=== PATIENT | female | born 1995 | race Caucasian/White ===

== ENCOUNTER 2017-11-28 17:43 | Emergency (ER) | payer BC ==
[2017-11-28 19:47] LABS: ABS Basophils 0 10^3/ul (0-0.2); ABS Eosinophils 0 10^3/ul (0-0.6); ABS Lymphocytes 1.5 10^3/ul (1.0-4.8); ABS Monocytes 0.9 10^3/ul (0-0.8); ABS Neutrophils 9.5 10^3/ul (1.5-7.7); ABS Nucleated RBC 0 10^3/ul; Eosinophil % 0.1 % (0-6); Hematocrit 36 % (35-47); Hemoglobin 12.4 g/dl (12.0-16.0); Lymphocyte % 12.8 % (25-47); Mean Corpuscular HGB Conc 35 g/dl (31-36); Mean Corpuscular Hemoglobin 31 pg (27-31); Mean Corpuscular Volume 90 fL (80-97); Mean Platelet Volume 9 um3 (7.4-10.4); Nucleated Red Blood Cells % 0; Platelet Count 269 10^3/ul (150-450); Red Blood Count 3.98 10^6/ul (4.0-5.4); Red Cell Distribution Width 13 % (10.5-15); White Blood Count 11.9 10^3/ul (3.5-10.8)
[2017-11-28 20:07] LABS: EGFR Non-African American 77.8 (>60)
[2017-11-28 20:30] LABS: Urine Appearance Clear; Urine Blood Negative (Negative); Urine Color Yellow; Urine Ketones Negative (Negative); Urine Protein Negative (Negative); Urine Specific Gravity 1.025 (1.010-1.030); Urine Urobilinogen Negative (Negative)
[2017-11-28] MEDS ORDERED: NS 0.9% 1000 ML* 1,000 ML IV ONE (22:57)
[2017-11-28] MEDS ORDERED: Ketorolac INJ* 30 MG/ML 1 ML VIAL IV PUSH ONE (22:57)
[2017-11-29] MEDS ORDERED: Bisacodyl SUPP* 10 MG SUPP PR ONE (01:24)
[2017-11-29] MEDS ORDERED: Magnesium CITRATE* 300 ML BTL PO ONE (01:24)
--- NOTE | 2017-11-29 01:37 | ED ---
Patrick Be Angela, scribed for Linda Negron MD on 11/28/17 at 2253 . Abdominal Pain/Female - HPI Summary HPI Summary: This pt is a 22 y/o female presenting to [facility] [place] c/o lower abd pain across her abd. She notes her abd pain began last night and her pain persisted through this morning. Pt describes her pain as sharp and radiating to her back. Pt additionally reports fever, nausea, and vomiting. Her last bowel movement was yesterday. LMP: beginning of November. - History of Current Complaint Chief Complaint: EDAbdPain Stated Complaint: ABD PAIN Hx Obtained From: Patient Onset/Duration: Lasting Days - 1, Still Present Timing: Days - 1 Severity Currently: Severe Pain Intensity: 9 Pain Scale Used: 0-10 Numeric Location: Other - lower abd Radiates: Yes Radiates to: Back Character: Sharp Aggravating Factor(s): Nothing Alleviating Factor(s): Nothing Associated Signs and Symptoms: Positive: Fever, Back Pain, Nausea, Vomiting, Other: - chills. Negative: Constipation Allergies/Adverse Reactions: Allergies Allergy/AdvReac Type Severity Reaction Status Date / Time No Known Allergies Allergy Verified 11/28/17 22:19 PMH/Surg Hx/FS Hx/Imm Hx Endocrine/Hematology History: Denies: Hx Diabetes Cardiovascular History: Denies: Hx Hypertension Infectious Disease History: No Infectious Disease History: Denies: Traveled Outside the [place] in Last 30 Days - Family History Known Family History: Negative: Cardiac Disease, Hypertension, Diabetes - Social History Alcohol Use: None Substance Use Type: Reports: None Smoking Status (MU): Never Smoked Tobacco Review of Systems Positive: Fever, Chills Eyes: Negative Positive: Abdominal Pain, Vomiting, Nausea. Negative: Diarrhea, Other - constipation Musculoskeletal: Negative Skin: Negative Neurological: Negative All Other Systems Reviewed And Are Negative: Yes Physical Exam - Summary Physical Exam Summary: VITAL SIGNS: Reviewed. GENERAL: Patient is a well-developed and nourished female who is lying comfortable in the stretcher. Patient is not in any acute respiratory distress. HEAD AND FACE: No signs of trauma. No ecchymosis, hematomas or skull depressions. No sinus tenderness. EYES: PERRLA, EOMI x 2, No injected conjunctiva, no nystagmus. EARS: Hearing grossly intact. Ear canals and tympanic membranes are within normal limits. MOUTH: Oropharynx within normal limits. NECK: Supple, trachea is midline, no adenopathy, no JVD, no carotid bruit, no c- spine tenderness, neck with full ROM. CHEST: Symmetric, no tenderness at palpation LUNGS: Clear to auscultation bilaterally. No wheezing or crackles. CVS: Regular rate and rhythm, S1 and S2 present, no murmurs or gallops appreciated. ABDOMEN: Soft. Bilateral lower quadrant tenderness. No signs of distention. No rebound no guarding, and no masses palpated. Bowel sounds are normal. EXTREMITIES: FROM in all major joints, no edema, no cyanosis or clubbing. NEURO: Alert and oriented x 3. No acute neurological deficits. Speech is normal and follows commands. SKIN: Dry and warm Triage Information Reviewed: Yes Vital Signs On Initial Exam: Initial Vitals Temp Pulse Resp BP Pulse Ox 98.7 F 97 20 122/65 98 11/28/17 18:02 11/28/17 18:02 11/28/17 18:02 11/28/17 18:02 11/28/17 18:02 Vital Signs Reviewed: Yes Diagnostics - Vital Signs Vital Signs Temp Pulse Resp BP Pulse Ox 11/28/17 22:39 79 100 11/28/17 20:04 97.7 F 78 15 118/73 100 11/28/17 18:02 98.7 F 97 20 122/65 98 - Laboratory Lab Results: Lab Results 11/28/17 11/28/17 11/28/17 Range/Units 19:34 19:34 19:34 WBC 11.9 H (3.5-10.8) 10^3/ul RBC 3.98 L (4.0-5.4) 10^6/ul Hgb 12.4 (12.0-16.0) g/dl Hct 36 (35-47) % MCV 90 (80-97) fL MCH 31 (27-31) pg MCHC 35 (31-36) g/dl RDW 13 (10.5-15) % Plt Count 269 (150-450) 10^3/ul MPV 9 (7.4-10.4) um3 Neut % (Auto) 79.3 (38-83) % Lymph % (Auto) 12.8 L (25-47) % [place] % (Auto) 7.7 H (0-7) % Eos % (Auto) 0.1 (0-6) % Baso % (Auto) 0.1 (0-2) % Absolute Neuts (auto) 9.5 H (1.5-7.7) 10^3/ul Absolute Lymphs (auto) 1.5 (1.0-4.8) 10^3/ul Absolute Monos (auto) 0.9 H (0-0.8) 10^3/ul Absolute Eos (auto) 0 (0-0.6) 10^3/ul Absolute Basos (auto) 0 (0-0.2) 10^3/ul Absolute Nucleated RBC 0 10^3/ul Nucleated RBC % 0 Sodium 135 (133-145) mmol/L Potassium 4.2 (3.5-5.0) mmol/L Chloride 103 (101-111) mmol/L Carbon Dioxide 26 (22-32) mmol/L Anion Gap 6 (2-11) mmol/L BUN 13 (6-24) mg/dL Creatinine 0.92 (0.51-0.95) mg/dL Est GFR ( Amer) 100.1 (>60) Est GFR (Non-Af Amer) 77.8 (>60) BUN/Creatinine Ratio 14.1 (8-20) Glucose 102 H (70-100) mg/dL Lactic Acid 1.0 (0.5-2.0) mmol/L Calcium 9.4 (8.6-10.3) mg/dL Total Bilirubin 0.30 (0.2-1.0) mg/dL AST 20 (13-39) U/L ALT 12 (7-52) U/L Alkaline Phosphatase 54 (34-104) U/L C-Reactive Protein 2.51 (< 5.00) mg/L Total Protein 7.3 (6.4-8.9) g/dL Albumin 4.8 (3.2-5.2) g/dL Globulin 2.5 (2-4) g/dL Albumin/Globulin Ratio 1.9 (1-3) Lipase 20 (11.0-82.0) U/L Beta HCG, Quant < 0.60 mIU/mL Urine Color Urine Appearance Urine pH (5-9) Ur Specific [place] (1.010-1.030) Urine Protein (Negative) Urine Ketones (Negative) Urine Blood (Negative) Urine Nitrate (Negative) Urine Bilirubin (Negative) Urine Urobilinogen (Negative) Ur Leukocyte Esterase (Negative) Urine Glucose (Negative) 11/28/17 Range/Units 20:14 WBC (3.5-10.8) 10^3/ul RBC (4.0-5.4) 10^6/ul Hgb (12.0-16.0) g/dl Hct (35-47) % MCV (80-97) fL MCH (27-31) pg MCHC (31-36) g/dl RDW (10.5-15) % Plt Count (150-450) 10^3/ul MPV (7.4-10.4) um3 Neut % (Auto) (38-83) % Lymph % (Auto) (25-47) % [place] % (Auto) (0-7) % Eos % (Auto) (0-6) % Baso % (Auto) (0-2) % Absolute Neuts (auto) (1.5-7.7) 10^3/ul Absolute Lymphs (auto) (1.0-4.8) 10^3/ul Absolute Monos (auto) (0-0.8) 10^3/ul Absolute Eos (auto) (0-0.6) 10^3/ul Absolute Basos (auto) (0-0.2) 10^3/ul Absolute Nucleated RBC 10^3/ul Nucleated RBC % Sodium (133-145) mmol/L Potassium (3.5-5.0) mmol/L Chloride (101-111) mmol/L Carbon Dioxide (22-32) mmol/L Anion Gap (2-11) mmol/L BUN (6-24) mg/dL Creatinine (0.51-0.95) mg/dL Est GFR ( Amer) (>60) Est GFR (Non-Af Amer) (>60) BUN/Creatinine Ratio (8-20) Glucose (70-100) mg/dL Lactic Acid (0.5-2.0) mmol/L Calcium (8.6-10.3) mg/dL Total Bilirubin (0.2-1.0) mg/dL AST (13-39) U/L ALT (7-52) U/L Alkaline Phosphatase (34-104) U/L C-Reactive Protein (< 5.00) mg/L Total Protein (6.4-8.9) g/dL Albumin (3.2-5.2) g/dL Globulin (2-4) g/dL Albumin/Globulin Ratio (1-3) Lipase (11.0-82.0) U/L Beta HCG, Quant mIU/mL Urine Color Yellow Urine Appearance Clear Urine pH 6.0 (5-9) Ur Specific [place] 1.025 (1.010-1.030) Urine Protein Negative (Negative) Urine Ketones Negative (Negative) Urine Blood Negative (Negative) Urine Nitrate Negative (Negative) Urine Bilirubin Negative (Negative) Urine Urobilinogen Negative (Negative) Ur Leukocyte Esterase Negative (Negative) Urine Glucose Negative (Negative) Result Diagrams: 11/28/17 19:34 11/28/17 19:34 Lab Statement: Any lab studies that have been ordered have been reviewed, and results considered in the medical decision making process. - Radiology Abdomen XR Xray Interpretation: Positive (See Comments) - Abdomen XR shows constipation. Radiology Interpretation Completed By: ED Physician - Ultrasound No standard instances Ultrasound Interpretation: Positive (See Comments) - Pelvic US IMPRESSION: Complex 8.8 cm right adnexal mass, possibly a hemorrhagic or collapsing ovarian cyst, without discrete normal ovarian parenchyma identified. Suggest further evaluation with endovaginal scanning in order to better identify ovarian parenchyma and perform pulse Doppler evaluation. Dr. Negron has reviewed this radiology report. Ultrasound Interpretation Completed By: Radiologist Re-Evaluation - Re-Evaluation First Eval Re-Evaluation Time: 01:17 Comment: I reviewed the abd XR and pelvic US results with the pt and mother. Pt reports she feels better. Abdominal Pain Fem Course/Dx - Course Course Of Treatment: Pt is a 22 y/o female who presents with lower abd pain across her abd since last night. In the ED course, the pt was given IV fluids and Toradol. Pelvic ultrasounds shows complex 8.8 cm right adnexal mass, possibly a hemorrhagic or collapsing ovarian cyst, without discrete normal ovarian parenchyma identified. Suggest further evaluation with endovaginal scanning in order to better identify ovarian parenchyma and perform pulse Doppler evaluation. Abdomen XR shows constipation. I discussed pt's ultrasound with the radiologist, he reports there was a flaw and therefore was not able to see the right ovary. Radiologist does not think it is torsion on the right side. Pt reports she is feeling better with less pain. She will be discharged home with follow up from OB in 1-2 days. Pt is instructed to return to the ED for any worsening symptoms. - Diagnoses Provider Diagnoses: Right ovarian cyst, Constipation - Provider Notifications Discussed Care Of Patient With: Radiologist Time Discussed With Above Provider: 01:15 Instructed by Provider To: Other - I discussed pt's ultrasound with the radiologist, he reports there was a flaw and therefore was not able to see the right ovary. Radiologist does not think it is torsion on the right side. Discharge - Discharge Plan Condition: Stable Disposition: HOME Prescriptions: Ibuprofen TAB* [Motrin TAB* 800 MG] 800 mg PO Q6H PRN #30 tab PRN Reason: Pain Patient Education Materials: Ovarian Cyst (ED), Constipation (ED) Referrals: [facility] [Primary Care Provider] - Zac Tobar MD [Medical Doctor] - 1 Day (in 1-2 days.) Additional Instructions: Please follow up with Dr. Tobar, OB, in 1-2 days. RETURN TO EMERGENCY DEPARTMENT FOR ANY NEW OR WORSENING SYMPTOMS. The documentation as recorded by the Patrick pichardo Angela accurately reflects the service I personally performed and the decisions made by me, Linda Negron MD.
[2017-11-29 01:55] VITALS: BP 118/62
--- NOTE | 2017-11-29 08:00 | RAD ---
INDICATION: Left worse than right pelvic pain COMPARISON: None. TECHNIQUE: Real-time transabdominal only ultrasound examination of the female pelvis including grayscale and Doppler color flow imaging. FINDINGS: Uterus: The uterus is normal in size and echogenicity measuring 7.2 x 3.9 x 4.7 cm. The endometrial stripe is smooth and uniform measuring 11 mm in thickness. Ovaries: The left ovary measures 3.3 x 1.7 x 2.1 cm. Obscuring the right ovary and right adnexa there is heterogeneously echogenic structure measuring 6.8 x 8.8 x 7.4 cm. There is a mostly anechoic structure in the center measuring 3.2 cm in greatest dimension. There is mild peripheral vascularity. There is a small amount of mixed echogenicity free fluid in the cul-de-sac. IMPRESSION: At the right adnexa there is a mixed echogenicity mass measuring 8.8 cm in greatest dimension. The differential diagnosis includes complex collapsing/hemorrhagic ovarian follicle in a woman of this age. In the setting of a positive beta-hCG, ectopic should also be considered. Superior characterization could BE made with transvaginal ultrasound to better visualize what is most likely the right ovary.
--- NOTE | 2017-11-29 08:09 | RAD ---
INDICATION: Generalized abdominal pain COMPARISON: None TECHNIQUE: Supine and upright views of the abdomen were obtained. FINDINGS: The small bowel and colon appear nondistended. No free intraperitoneal air is seen. No grossly abnormal or pathologic appearing calcifications are noted. Visualized bones are within normal limits for the patient's age. IMPRESSION: Normal abdominal radiograph.
== END 2017-11-29 01:59 | disposition home or self-care (01) ==
LOC: ED 17:43
DX: N83.201 Unspecified ovarian cyst, right side (principal); K59.00 Constipation, unspecified; R50.9 Fever, unspecified; M54.9 Dorsalgia, unspecified; R11.2 Nausea with vomiting, unspecified
CPT/HCPCS: 36415; 74019; 76856; 80053; 81003; 83605; 83690; 84702; 85025; 86140; 96374; 99283; A9270-GY; J1885